=== PATIENT | female | born 1955 ===

== ENCOUNTER 2020-10-07 10:15 | Inpatient (IN) | payer OTHER ==
[~2020-10-07] VITALS: Ht 165.1 cm; Wt 100.7 kg
[2020-10-07] MEDS ORDERED: ORAPRED ODT10 MG PO (15:38)
[2020-10-13] MEDS ORDERED: FERROUS SULFAT325 MG (13:19)
[2020-10-13] MEDS ORDERED: NEXIUM 24HR20 M1 (13:19)
[2020-10-13] MEDS ORDERED: LATANOPROST2.5 ML (13:19)
[2020-10-17] MEDS ORDERED: NEURONTIN300 MG PO (08:30)
[2020-10-17] MEDS ORDERED: INTESTINEX680 M1 PO (08:31)
== END 2020-10-17 12:23 | disposition home or self-care (01) | DRG 330 ==
LOC: O/R 10:15 → SURH 10-13 10:15 → O/R 10-13 10:18 → SURH 10-13 12:30 → SURG 10-13 20:03
PROVIDERS: ADMIT Surgery; ATTEND Surgery
PROC: 07BB4ZZ Excision of Mesenteric Lymphatic, Percutaneous Endoscopic Approach (ICD-10-PCS; 2020-10-13)
PROC: 4A12X4Z Monitoring of Cardiac Electrical Activity, External Approach (ICD-10-PCS; 2020-10-13)
PROC: 0DTF4ZZ Resection of Right Large Intestine, Percutaneous Endoscopic Approach (ICD-10-PCS; principal; 2020-10-13 12:30)
DX: C18.2 Malignant neoplasm of ascending colon (principal); K92.1 Melena; D50.9 Iron deficiency anemia, unspecified; E66.9 Obesity, unspecified; Z68.37 Body mass index [BMI] 37.0-37.9, adult